=== PATIENT | male | born 1970 | race Caucasian/White ===

== ENCOUNTER 2017-07-21 12:45 | Outpatient (RCR) | payer BC ==
[2004-10-04 15:56] VITALS: PULSE 74; TEMP 98.9
== END 2017-07-23 ==
LOC: WSPT
DX: R27.0 Ataxia, unspecified (principal); M25.561 Pain in right knee; Z90.49 Acquired absence of other specified parts of digestive tract; Z80.3 Family history of malignant neoplasm of breast

== ENCOUNTER 2022-05-26 07:18 | Day surgery (SDC) | payer OTHER ==
[~2022-05-26] VITALS: Ht 175.3 cm; Wt 112.3 kg
[2022-05-26] MEDS ORDERED: TOPROL XL 25MG25 MG PO (08:00)
[2022-05-26] MEDS ORDERED: PROTONIX 40MG T40 MG PO (08:01)
[2022-05-26] MEDS ORDERED: HYZAAR 25 MG-101 TAB PO (08:01)
[2022-05-26] MEDS ORDERED: FOCALIN XR20 MG PO (08:02)
[2022-05-26] MEDS ORDERED: MULTI VITAMINS1 TAB PO (08:03)
[2022-05-26] MEDS ORDERED: CALCIUM CITRAT950 MG (08:04)
[2022-05-26 08:12] VITALS: BP 125/96; PULSE 65; TEMP 97.5
[2022-05-26 09:20] VITALS: BP 100/70; PULSE 65; TEMP 97.1
--- NOTE | 2022-05-26 09:32 | NUR ---
0920 - PT arrives and was setted by Sheila ALEJANDRA. Verbal room report then obtained; VSS. PT denies pain and nausea; snack and drink provided per PT request. Call ortiz within reach if needed, and non-slip socks remain on. Will monitor per intervals.
[2022-05-26 09:35] VITALS: BP 120/77; PULSE 64
--- NOTE | 2022-05-26 09:40 | NUR ---
0935 - VSS. Call ortiz within reach. 0940 - PT alert and oriented; requested RN contact ride home. PT has finished snack and drink; continues to deny pain/nausea. Call ortiz remains within reach.
[2022-05-26 09:50] VITALS: BP 121/82; PULSE 65
--- NOTE | 2022-05-26 09:52 | NUR ---
8199 - Visitor was brought into PT room per PT request. VSS. PT expressed desire to be discharge; call ortiz remains within reach if needed.
--- NOTE | 2022-05-26 09:52 | NUR ---
3500 - Visitor was brought into PT room per PT request. VSS. PT expressed desire to be discharge; call ortiz remains within reach if needed.
[2022-05-26 10:05] VITALS: BP 127/79; PULSE 62
--- NOTE | 2022-05-26 10:05 | NUR ---
1005 - VSS. IV discontinued. Catheter tip intact and pressure bandage applied. NO redness or swelling noted. DC instructions and educational material reviewed w/ PT who verbalized undestanding and signed the realted paperwork; questions answered to PT satisfaction. Monitors discontinued. PT refused RN assitance changing into personal clothes; call ortiz remains within reach and non-slip socks remain on. 1007 - DR has spoken w/ PT.
--- NOTE | 2022-05-26 10:24 | NUR ---
1015 - PT dismissed from endo via wheelchair to PT entrence by Cady ALEJANDRA. PT has DC packet and personal belongings and was transferred into the care of Patti, who is driving private car.
== END 2022-05-26 10:20 | disposition home or self-care (01) ==
LOC: SDCO 07:18
DX: Z12.11 Encounter for screening for malignant neoplasm of colon (principal); D12.3 Benign neoplasm of transverse colon
CPT/HCPCS: J2704; J7120